=== PATIENT | female | born 1975 | race Caucasian/White ===

== ENCOUNTER 2019-03-29 06:50 | Day surgery (SDC) | payer OTHER ==
[2019-03-28 11:29] VITALS: BMI 23.5
[2019-03-29] MEDS ORDERED: LIDOCAINE HCL 2% (20ML MULTI-DOSE VIAL) NR ONE (07:28)
[2019-03-29] MEDS ORDERED: MIDAZOLAM HCL 2 MG/2 ML SINGLE DOSE VIAL ONE (07:37)
[2019-03-29] MEDS ORDERED: PROPOFOL 20 ML ONE ×2 (07:37)
[2019-03-29] MEDS ORDERED: oxyCODONE HCL 5 MG TABLET PO PRN ×2 (08:45)
[2019-03-29] MEDS ORDERED: ACETAMINOPHEN 325 MG TABLET (FP) PO PRN (08:45)
[2019-03-29] MEDS ORDERED: LACTATED RINGERS SOLUTION 1,000 ML IV SCH (08:45)
[2019-03-29] MEDS ORDERED: ONDANSETRON 4 MG/2 ML VIAL IVPUSH PRN (08:45)
[2019-03-29] MEDS ORDERED: BUPIVACAINE HCL 0.25% 125 MG/50 ML VIAL ONE (08:46)
[2019-03-29] MEDS ORDERED: ceFAZolin SODIUM 1 GM VIAL ONE (08:58)
[2019-03-29] MEDS ORDERED: DEXAMETHASONE SOD PHOSPHATE 4 MG/1 ML VIAL ONE (08:58)
[2019-03-29] MEDS ORDERED: ONDANSETRON 4 MG/2 ML VIAL ONE (08:58)
[2019-03-29] MEDS ORDERED: LIDOCAINE HCL 2% (50ML VIAL) INF ONE (08:58)
[2019-03-29] MEDS ORDERED: KETOROLAC TROMETHAMINE 30 MG/1 ML VIAL ONE (08:58)
[2019-03-29] MEDS ORDERED: BUPIVACAINE HCL/PF 0.25% (2.5MG/ML) 10 ML VIAL IJ ONE (08:58)
[2019-03-29 10:02] VITALS: TEMP 98.2
[2019-03-29 10:17] VITALS: BP 114/72; PULSE 78
--- NOTE | 2019-03-30 14:23 | OP ---
DATE OF OPERATION: 03/29/2019 PREOPERATIVE DIAGNOSES: 1. Left small finger proximal phalanx fracture, displaced.2. Left long finger mallet finger. 3. Left longer finger middle phalanx base avulsion fracture. 4. Left ring finger middle phalanx volar plate avulsion fracture. POSTOPERATIVE DIAGNOSES: 1. Left small finger proximal phalanx fracture, displaced.2. Left long finger mallet finger. 3. Left longer finger middle phalanx base avulsion fracture. 4. Left ring finger middle phalanx volar plate avulsion fracture. OPERATIVE PROCEDURES: 1. Closed reduction and percutaneous pinning of left small finger proximal phalanx fracture. 2. Closed reduction and pinning and repair of left long finger mallet distal interphalangeal joint injury. 3. Closed reduction without manipulation, left long finger middle phalanx fracture. 4. Closed reduction without manipulation, left ring finger middle phalanx fracture. SURGEON: Jason Negron MD DIETARY WORKER: ELDON Ravi ANESTHESIA: Local with sedation. COMPLICATIONS: None. ESTIMATED BLOOD LOSS: Minimal. INDICATIONS FOR PROCEDURE: The patient is a 43-year-old female with the above findings, indicated for operative treatment. Risks, benefits, alternatives were discussed with the patient at length. Proper informed consent was obtained. PROCEDURE: After proper identification of patient and correct operative site, patient was brought to operating room and placed supine on the operating table. All bony prominences were well padded. Sedation and local anesthesia were given. The left upper extremity was prepped and draped in the usual sterile fashion. Under live fluoroscopy, the small finger fracture was reduced and K wires were placed percutaneously from a proximal to distal direction, securing and stabilizing the fracture. Pins were bent and cut short outside the skin. Confirmation of proper reduction and placement of hardware was confirmed radiographically. The left long finger was then placed into full extension of the DIP joint and a K wire was placed across the distal interphalangeal joint percutaneously and cut short just beneath the skin. Sterile dressings and splint were then placed, including the long and ring fingers to immobilize and treat the middle phalangeal fractures. Patient was reversed from anesthesia and brought to the recovery room in stable condition. She tolerated the procedure well. Tommie Damon, the librarian assistant, was integral throughout the procedure. The procedure could not have been performed without a skilled operative librarian assistant. Cherise [id number]
== END 2019-03-29 11:08 | disposition home or self-care (01) ==
LOC: FASU 06:50
PROVIDERS: ATTEND Orthopaedic Surgery Hand Surgery
PROC: 0PSVXZZ Reposition Left Finger Phalanx, External Approach (ICD-10-PCS; 2019-03-29)
PROC: 0PSVXZZ Reposition Left Finger Phalanx, External Approach (ICD-10-PCS; 2019-03-29)
PROC: 0RHX34Z Insertion of Internal Fixation Device into Left Finger Phalangeal Joint, Percutaneous Approach (ICD-10-PCS; 2019-03-29)
PROC: 0PSV34Z Reposition Left Finger Phalanx with Internal Fixation Device, Percutaneous Approach (ICD-10-PCS; principal; 2019-03-29 08:58)
DX: S62.617A Displaced fracture of proximal phalanx of left little finger, initial encounter for closed fracture (principal); S62.623A Displaced fracture of middle phalanx of left middle finger, initial encounter for closed fracture; S62.625A Displaced fracture of middle phalanx of left ring finger, initial encounter for closed fracture; M20.012 Mallet finger of left finger(s); X58.XXXA Exposure to other specified factors, initial encounter; Y93.9 Activity, unspecified; Y92.9 Unspecified place or not applicable
CPT/HCPCS: 73130-TC-LT-FY; 84703